=== PATIENT | male | born 1970 | race Caucasian/White ===

== ENCOUNTER 2019-11-11 21:05 | Emergency (ER) | payer BC ==
[~2019-11-11] VITALS: Ht 195.6 cm; Wt 85.9 kg
--- NOTE | 2019-11-11 21:24 | PHYS DOC ---
General Adult EDM: Chief Complaint: WEAKNESS/GENERALIZED HPI: HPI: Patient is a 49 year old male presenting to the ED with a chief complaint of generalized weakness. Patient states that symptoms started earlier today. Patient is not sure if any of the medications that he started recently have contributed to the symptoms. Patient states that he was started recently on Flexeril. Patient also then admits that he smoked marijuana today which is for the first time. Patient denies alcohol use today. Patient does not describe the room is spinning or patient being lightheaded. He states that he was just having some mild weakness. Patient denies chest pain, shortness of breath, fe nuha, chills, nausea, vomiting. Review of Systems: Review of Systems: Constitutional: Denies fever or chills. [] Eyes: Denies change in visual acuity. [] HENT: Denies nasal congestion or sore throat. [] Respiratory: Denies cough or shortness of breath. [] Cardiovascular: Denies chest pain or edema. [] GI: Denies abdominal pain, nausea, vomiting, bloody stools or diarrhea. [] : Denies dysuria. [] Musculoskeletal: Denies back pain or joint pain. [] Integument: Denies rash. [] Neurologic: Complains of generalized weakness [] Heart Score: Risk Factors: Risk Factors: DM, Current or recent (<one month) smoker, HTN, HLP, family history of CAD, obesity. Risk Scores: Score 0 - 3: 2.5% MACE over next 6 weeks - Discharge Home Score 4 - 6: 20.3% MACE over next 6 weeks - Admit for Clinical Observation Score 7 - 10: 72.7% MACE over next 6 weeks - Early Invasive Strategies Allergies: Allergies: Allergies Coded Allergies Type Severity Reaction Last Updated Verified Penicillins Allergy Mild 11/11/19 Yes Physical Exam: PE: Constitutional: Well developed, well nourished, no acute distress, non-toxic appearance. [] HENT: Normocephalic, atraumatic Eyes: EOMI Neck: Normal range of motion, Supple Cardiovascular: Heart rate regular rhythm Lungs & Thorax: Bilateral breath sounds clear to auscultation [] Abdomen: Bowel sounds normal, soft, no tenderness Extremities: No tenderness, ROM intact Neurologic: Alert and oriented X 3, no focal neuro deficits on exam. EKG: EKG: [EKG interpretation: 22: 02 on 11/11/2019 HR: 93 Sinus rhythm Regular intervals Normal axis Nonspecific ST changes ] Radiology/Procedures: Radiology/Procedures: [] Impression: CXR IMPRESSION: No acute cardiopulmonary process. Course & Med Decision Making: Course & Med Decision Making Pertinent Labs and Imaging studies reviewed. (See chart for details) Ordered labs, UA, urine drug screen, EKG, troponin, chest x-ray EKG does not show any acute changes. Chest x-ray does not show any acute disease. Labs are within normal limits. Troponin is negative. UA does not show UTI. Urine drug screen is positive for cannabinoids. Patient be discharged home for outpatient follow-up. Do not need to repeat a troponin as patient has had the symptoms for most of today. Discussed results and plan of care with patient. Patient is instructed to follow up with PCP in one to 2 days. Appropriate discharge instructions given to patient to return to the ED or to seek immediate medical evaluation. Patient is instructed to return to the ED if symptoms worsen or if any concerns. Lisa Disclaimer: Lisa Disclaimer: This electronic medical record was generated, in whole or in part, using a voice recognition dictation system. Departure Departure Impression: Primary Impression: Weakness Additional Impression: Drug abuse Disposition: 01 HOME, SELF-CARE Condition: STABLE Patient Instructions: Marijuana Abuse and Chemical Dependency, Weakness Additional Instructions: Please return to the ED if symptoms worsen or if any concerns. Please follow-up with PCP in 1 to 2 days. Justicifation of Admission Dx: Justifications for Admission: Justification of Admission Dx: ARMANI Dao DO Nov 11, 2019 21:24
[2019-11-11 21:50] LABS: BASO # 0.1 x10^3/uL (0.0-0.2); BASO % 1 % (0-3); EOS # 0.1 x10^3/uL (0.0-0.7); EOS % 1 % (0-3); HEMATOCRIT 40.7 % (39.0-53.0); HEMOGLOBIN 14.5 g/dL (13.0-17.5); LYMPH # 0.9 x10^3/uL (1.0-4.8); LYMPH % 8 % (24-48); MEAN CORPUSCULAR HEMOGLOBIN 32 pg (25-35); MEAN CORPUSCULAR HGB CONC 36 g/dL (31-37); MEAN CORPUSCULAR VOLUME 90 fL (79-100); MONO # 0.6 x10^3/uL (0.0-1.1); MONO % 6 % (0-9); NEUT % 84 % (31-73); PLATELET COUNT 296 x10^3/uL (140-400); RED BLOOD COUNT 4.52 x10^6/uL (4.30-5.70); RED CELL DISTRIBUTION WIDTH 13.8 % (11.5-14.5); WHITE BLOOD COUNT 10.8 x10^3/uL (4.0-11.0)
[2019-11-11 21:57] LABS: BILIRUBIN,URINE SMALL (NEG); CLARITY,URINE CLEAR; COLOR,URINE YELLOW; NITRITE,URINE NEGATIVE (NEG); PH,URINE 5.5 (<5.0-8.0); PROTEIN,URINE NEGATIVE (NEG-TRACE)
[2019-11-11 21:59] LABS: BACTERIA,URINE 0 /HPF (0-FEW); RBC,URINE 0 /HPF (0-2); SQUAMOUS EPITHELIAL CELL,UR FEW /LPF
[2019-11-11 22:11] LABS: AMPHETAMINE/METHAMPHETAMINE NEG (NEG); BARBITURATES NEG (NEG); BENZODIAZEPINES NEG (NEG); CALCIUM 8.3 mg/dL (8.5-10.1); CANNABINOIDS POS (NEG); COCAINE NEG (NEG); CREATININE 0.9 mg/dL (0.7-1.3); GFR 89.3; METHADONE NEG (NEG); OPIATES NEG (NEG); PHENCYCLIDINE NEG (NEG); POTASSIUM 3.7 mmol/L (3.5-5.1)
[2019-11-11 22:15] LABS: ALBUMIN 3.9 g/dL (3.4-5.0); ALBUMIN/GLOBULIN RATIO 1.3 (1.0-1.7); TOTAL BILIRUBIN 0.6 mg/dL (0.2-1.0); TOTAL PROTEIN 6.8 g/dL (6.4-8.2)
--- NOTE | 2019-11-11 22:15 | RAD ---
Exam: Chest one view INDICATION: Pain TECHNIQUE: Frontal view of the chest Comparisons: None FINDINGS: The cardiomediastinal silhouette and pulmonary vessels are within normal limits. The lung and pleural spaces are clear. IMPRESSION: No acute cardiopulmonary process. Electronically signed by: Fabby Field MD (11/11/2019 10:13 PM) [id number]
[2019-11-11 22:44] VITALS: BP 139/80
--- NOTE | 2019-11-12 08:52 | EKG ---
[facility] [address] [place] [id number] Test Date: 2019-11-11 Test Time: 22:02:32 Pat Name: MILAGROS HUBBARD Department: Room: Gender: M [employer]: : 1970 Requested By: ARMANI ACOSTA Order Number: [id number] Reading MD: Aime Abdi MD Measurements Intervals [place] Rate: 93 P: 44 MD: 164 QRS: 23 QRSD: 90 T: 43 QT: 338 QTc: 423 Interpretive Statements SINUS RHYTHM Electronically Signed On 11-15-2019 12:10:15 CDT by Aime Abdi MD
== END 2019-11-11 23:03 | disposition home or self-care (01) ==
LOC: ER 21:05
DX: R53.1 Weakness (principal); F12.10 Cannabis abuse, uncomplicated; R42 Dizziness and giddiness; Z88.0 Allergy status to penicillin
CPT/HCPCS: 36415; 71045; 80053; 80307; 81001; 84484; 85025; 87086; 93005; 99285